=== PATIENT | female | born 1985 | race Caucasian/White ===

== ENCOUNTER 2017-03-17 16:11 | Inpatient (IN) | payer OTHER ==
[~2017-03-17] VITALS: Ht 157.5 cm; Wt 70.8 kg
[2017-04-24] MEDS ORDERED: PRENATAL TABLE1 EAC4 PO (14:31)
== END 2017-04-27 14:13 | DRG 775 ==
LOC: LDR → OB/GYN 04-24 11:42 → LDR 04-24 15:17 → OB/GYN 04-25 05:25
PROC: 3E0P7VZ Introduction of Hormone into Female Reproductive, Via Natural or Artificial Opening (ICD-10-PCS; 2017-04-24)
PROC: 4A1HXCZ Monitoring of Products of Conception, Cardiac Rate, External Approach (ICD-10-PCS; 2017-04-24)
PROC: 10E0XZZ Delivery of Products of Conception, External Approach (ICD-10-PCS; principal; 2017-04-25)
PROC: 0KQM0ZZ Repair Perineum Muscle, Open Approach (ICD-10-PCS; 2017-04-25)
PROC: 0W8NXZZ Division of Female Perineum, External Approach (ICD-10-PCS; 2017-04-25)
DX: O70.1 Second degree perineal laceration during delivery (principal); Z37.0 Single live birth; Z3A.40 40 weeks gestation of pregnancy

== ENCOUNTER 2017-04-15 13:33 | Outpatient (CLI) | payer OTHER | END 2017-04-15 16:56 | disposition home or self-care (01) | LOC: NST 13:33 | DX: Z34.03 Encounter for supervision of normal first pregnancy, third trimester (principal) ==

== ENCOUNTER 2017-04-20 13:43 | Outpatient (CLI) | payer OTHER | END 2017-04-20 14:48 | disposition home or self-care (01) | LOC: NST 13:43 | DX: Z34.83 Encounter for supervision of other normal pregnancy, third trimester (principal) ==

== ENCOUNTER 2017-04-23 11:21 | Outpatient (CLI) | payer OTHER ==
[2017-04-24] MEDS ORDERED: PRENATAL TABLE1 EAC4 PO (14:31)
== END 2017-04-23 12:04 | disposition home or self-care (01) ==
LOC: NST 11:21
DX: Z34.83 Encounter for supervision of other normal pregnancy, third trimester (principal)

== ENCOUNTER 2018-12-31 07:46 | Outpatient (CLI) | payer OTHER ==
[~2018-12-31 07:46] MED LIST: PRENATAL TABLE1 EAC4 PO
== END 2018-12-31 09:21 | disposition home or self-care (01) ==
LOC: NST 07:46
DX: O26.893 Other specified pregnancy related conditions, third trimester (principal); R10.2 Pelvic and perineal pain

== ENCOUNTER 2019-01-04 09:16 | Outpatient (CLI) | payer OTHER | END 2019-01-04 10:14 | disposition home or self-care (01) | LOC: NST 09:16 | DX: Z34.03 Encounter for supervision of normal first pregnancy, third trimester (principal) ==